=== PATIENT | female | born 1985 | race Caucasian/White ===

== ENCOUNTER 2018-08-24 22:21 | Emergency (ER) | payer MEDICAID ==
[~2018-08-24] VITALS: Ht 152.4 cm; Wt 86.2 kg
[2018-08-24 22:29] VITALS: BP 133/74
--- NOTE | 2018-08-24 22:35 | NUR ---
pt bib self for sob, hx asthma , auditory wheezes noted, pt is able to speak only a few words at a time, labored rr. pt is a&ox4. Sitting up in bed. ERMD aware of status.
[2018-08-24] MEDS ORDERED: ALBUTEROL SULFATE/IPRATROPIU 3 ML SOL IH STA (22:44)
--- NOTE | 2018-08-24 22:51 | NUR ---
RT AT BEDSIDE.
[2018-08-24] MEDS ORDERED: ALBUTEROL SULFATE/IPRATROPIU 3 ML SOL IH ONE ×2 (22:55→23:55)
[2018-08-24] MEDS ORDERED: NACL 0.9% 1,000 ML IV ONE (22:55)
[2018-08-24] MEDS ORDERED: MAG SULF 2000 MG/WATER PREMIX 50 ML IV ONE (22:55)
[2018-08-24] MEDS ORDERED: methylPREDNISolone SS 125 MG/2 ML VIAL IVP ONE (22:55)
[2018-08-25 00:15] VITALS: BP 122/71
== END 2018-08-25 00:15 | disposition home or self-care (01) ==
LOC: MED 22:21
DX: J45.901 Unspecified asthma with (acute) exacerbation (principal); Z88.1 Allergy status to other antibiotic agents
CPT/HCPCS: 71045; 94640; 94760; 96365; 96375; 99284; J2930; J3475; J7030; J7620; Q0092

== ENCOUNTER 2018-10-07 10:38 | Emergency (ER) | payer MEDICAID ==
[~2018-10-07] VITALS: Ht 152.4 cm; Wt 84.8 kg
[2018-10-07 10:42] VITALS: BP 113/72
--- NOTE | 2018-10-07 11:00 | NUR ---
C/O SOB X1 WEEK. PT STATES SHE HAS A HX OF ASTHMA BUT RAN OUT OF HER INHALER 2 DAYS AGO AND HAS ONLY BEEN USING HER NEBULIZER, BUT IT IS NOT RELIEVING THE SOB. PT HAD LABORED BREATHING, INCREASED RESPIRATIONS AT 24, O2 SAT 94% ON RA AND AUDIBLE WHEEZING THROUGHOUT. INTERMITTENT PRODUCTIVE COUGH, SPUTUM IS THICK AND YELLOW. BEDRAIL UP X1, BED LOCKED AND LOW. ERMD TO EVAL PT. HX: ASTHMA RX: ALBUTEROL NEBULIZER, [place], PRO AIR, QVAR.
[2018-10-07] MEDS ORDERED: ALBUTEROL SULFATE/IPRATROPIU 3 ML SOL IH ONE (11:35)
[2018-10-07] MEDS ORDERED: predniSONE 20 MG TAB PO ONE (11:35)
--- NOTE | 2018-10-07 11:50 | NUR ---
RT AT BEDSIDE.
[2018-10-07] MEDS ORDERED: ALBUTEROL 0.083% 2.5 MG/3 ML NEBU INH ONE (12:05)
--- NOTE | 2018-10-07 12:14 | NUR ---
RT AT BEDSIDE
[2018-10-07 14:14] VITALS: BP 115/73
== END 2018-10-07 14:10 | disposition home or self-care (01) ==
LOC: MED 10:38
DX: J45.901 Unspecified asthma with (acute) exacerbation (principal); Z88.1 Allergy status to other antibiotic agents
CPT/HCPCS: 94640; 99284; J7512; J7613; J7620; 94644

== ENCOUNTER 2018-11-10 02:23 | Emergency (ER) | payer MEDICAID ==
[~2018-11-10] VITALS: Ht 152.4 cm; Wt 84.8 kg
[2018-11-10 02:26] VITALS: BP 139/84
[2018-11-10] MEDS ORDERED: ALBUTEROL SULFATE/IPRATROPIU 3 ML SOL IH ONE ×3 (02:45→04:05)
[2018-11-10] MEDS ORDERED: methylPREDNISolone SS 125 MG/2 ML VIAL IM ONE (02:45)
--- NOTE | 2018-11-10 02:52 | NUR ---
PATIENT PRESENTS TO ED WITH DIFFICULTY BREATHING X3 DAYS, WORSENING WITHIN LAST DAY. ALBUTEROL AND NEBULIZER TREATMENT USED WITH NO RELIEF. EXPIRATORY WHEEZING. ALLERGY;PCN PHM; ASHTMA DENIES N/V/D; SKIN IS PINK/WARM/DRY; AAOX4 WITH EVEN AND STEADY GAIT; LUNGS CLEAR BL; HR EVEN AND REGULAR; PT DENIES ANY FEVER, AT THIS TIME; PATIENT STATES PAIN OF 0/10 AT THIS TIME; VSS; PATIENT POSITIONED FOR COMFORT; HOB ELEVATED; BEDRAILS UP X2; BED DOWN. ER MD MADE AWARE OF PT STATUS.
--- NOTE | 2018-11-10 05:12 | NUR ---
Patient discharged with v/s stable. Written and verbal after care instructions given and explained. Patient alert, oriented and verbalized understanding of instructions. Ambulatory with steady gait. All questions addressed prior to discharge. ID band removed. Patient advised to follow up with PMD. Rx of ALBUTEROL AND PREDNISONE given. Patient educated on indication of medication including possible reaction and side effects. Opportunity to ask questions provided and answered.
[2018-11-10 05:13] VITALS: BP 135/84
== END 2018-11-10 05:10 | disposition home or self-care (01) ==
LOC: MED 02:23
DX: J45.901 Unspecified asthma with (acute) exacerbation (principal); Z88.1 Allergy status to other antibiotic agents
CPT/HCPCS: 94640; 96372; 99285; J2930; J7620

== ENCOUNTER 2018-12-27 08:02 | Emergency (ER) | payer MEDICAID, OTHER ==
[~2018-12-27] VITALS: Ht 152.4 cm; Wt 86.2 kg
[2018-12-27 08:06] VITALS: BP 122/62
--- NOTE | 2018-12-27 08:09 | NUR ---
Patient ambulated to bed 11. RN evaluating patient at bedside.
--- NOTE | 2018-12-27 08:10 | NUR ---
Dr. Padron evaluating patient at bedside.
[2018-12-27] MEDS ORDERED: IPRATROPIUM 0.02% 0.5 MG/2.5 ML NEBU INH ONE (08:15)
[2018-12-27] MEDS ORDERED: predniSONE 20 MG TAB PO ONE (08:15)
[2018-12-27] MEDS ORDERED: ALBUTEROL 0.083% 2.5 MG/3 ML NEBU INH ONE (08:15)
--- NOTE | 2018-12-27 08:16 | NUR ---
PT BIB SELF C/O SOB X3 DAYS. PT LABORED BREATHING, MOIST COUGH, WHEEZES THROUGHOUT, O2 SAT AT 96% ON RA, SKIN COLOR WNL, CAP REFIL <3 SEC. PT AA0X4, DENIES PIAN, N/V/D, OR FEVER. hx: asthma rx: albuterol
--- NOTE | 2018-12-27 08:18 | NUR ---
RT AT BEDSIDE
--- NOTE | 2018-12-27 08:58 | NUR ---
Patient resting in bed and states that she is feeling better. Wheezes still noted throughout upon inspiration. Patient denies pain.
[2018-12-27 09:44] VITALS: BP 116/74
== END 2018-12-27 09:44 | disposition home or self-care (01) ==
LOC: MED 08:02
DX: J45.901 Unspecified asthma with (acute) exacerbation (principal); Z88.1 Allergy status to other antibiotic agents; Z98.890 Other specified postprocedural states
CPT/HCPCS: 94640; 99283; J7512; J7613; J7644

== ENCOUNTER 2020-02-22 08:02 | Emergency (ER) | payer OTHER, SELFPAY ==
[~2020-02-22] VITALS: Ht 152.4 cm; Wt 89.8 kg
[2020-02-22 08:05] VITALS: BP 153/82
--- NOTE | 2020-02-22 08:06 | NUR ---
Patient in tent for covid precautions
--- NOTE | 2020-02-22 08:20 | NUR ---
35 y/o female from home c/o c/o headache, fever, and diarrhea x yesterday. +covid contact on 02/14. Pt denies SOB/chest pain. RR even and unlabored. States she took tylenol around 0700 for pain and fever. Afebrile upon arrival. Skin warm, dry, intact. VSS medhx: asthma allergies: penicillin, amoxicillin
--- NOTE | 2020-02-22 08:23 | NUR ---
Dr Padron in tent examining patient
--- NOTE | 2020-02-22 08:33 | NUR ---
Covid swab collected and walked to lab.
[2020-02-22 08:41] VITALS: BP 153/82
--- NOTE | 2020-02-22 08:41 | NUR ---
Patient discharged with v/s stable. Written and verbal after care instructions given and explained. Patient alert, oriented and verbalized understanding of instructions. Ambulatory with steady gait. All questions addressed prior to discharge. ID band removed. Patient advised to follow up with PMD. Rx of albuterol inhaler given. Patient educated on indication of medication including possible reaction and side effects. Opportunity to ask questions provided and answered.
--- NOTE | 2020-02-23 16:22 | NUR ---
Covid + result received from lab. Copy given to infection control.
== END 2020-02-22 08:41 | disposition home or self-care (01) ==
LOC: MED 08:02
DX: U07.1 COVID-19 (principal); J45.909 Unspecified asthma, uncomplicated; R03.0 Elevated blood-pressure reading, without diagnosis of hypertension; Z88.0 Allergy status to penicillin; Z88.1 Allergy status to other antibiotic agents; Z98.51 Tubal ligation status
CPT/HCPCS: 99283; U0003